=== PATIENT | female | born 1980 | race African-American/Black ===

== ENCOUNTER 2017-05-17 05:15 | Inpatient (IN) | payer OTHER ==
[~2017-05-17 05:15] MED LIST: CITRIC ACID/SODIUM CITRATE 30 ML UNIT-DOSE CUP PO ONE; ELECTROLYTE-148 SOLN 500 ML IV ONE
[2017-05-17 06:06] VITALS: BMI 36.7
[2017-05-17 06:47] LABS: INR 1.01 (0.82-1.09); PROTHROMBIN TIME (PATIENT) 11.1 SEC (9.98-11.88)
[2017-05-17 07:13] LABS: HIV 1 & 2 AB NEGATIVE; HIV 1 AGp24 NEGATIVE
[2017-05-17] MEDS: ELECTROLYTE-148 SOLN 1,000 ML IV SCH (07:55)
[2017-05-17] MEDS ORDERED: ONDANSETRON 4 MG/2 ML VIAL IVPB PRN (08:26)
[2017-05-17] MEDS ORDERED: IBUPROFEN 600 MG TABLET (FP) PO PRN (08:26)
[2017-05-17 09:00] LABS: ARTERIAL BLD GAS O2 SATURATION 30.3 % (90-98.9); ARTERIAL BLOOD GAS BASE EXCESS -0.5 meq/l (-2-2); ARTERIAL BLOOD GAS PO2 20.2 mmHg (80-100)
[2017-05-17 09:02] LABS: ARTERIAL BLD GAS O2 SATURATION 59.3 % (90-98.9); ARTERIAL BLOOD GAS BASE EXCESS -0.2 meq/l (-2-2); ARTERIAL BLOOD GAS HCO3 25.1 meq/L (22-26); ARTERIAL BLOOD GAS pH 7.36 (7.35-7.45)
[2017-05-17 09:04] LABS: ARTERIAL BLOOD GAS PO2 29.9 mmHg (80-100)
[2017-05-17] MEDS ORDERED: OXYTOCIN 20 UNITS in 0.9% NS 1,000 ML IV SCH (09:15)
--- NOTE | 2017-05-17 09:51 | OP ---
Operative Note - Note: Pre-Operative Diagnosis: iup at term ptevious section us admitted yor repeat section Operation: removal of large keloid scar repeat low segment section Post-Operative Diagnosis: Same as Pre-op (kennedy) Surgeon: Sabina Denson Supervisor Intermediates: Lois Sheppard Anesthesia: Spinal Specimens Removed: [lacenta keloid scar Estimated Blood Loss (mls): 500 Drains, Volume Out (mls): 7,000 Fluid Volume Replaced (mls): 7,000
[2017-05-17] MEDS ORDERED: METHYLERGONOVINE MALEATE 0.2 MG/1 ML AMP IM PRN (10:25)
[2017-05-17] MEDS: IBUPROFEN 800 MG/8 ML IJ IVPB PRN ×2 (10:25→18:20)
--- NOTE | 2017-05-17 11:26 | HP ---
Past Medical History - Admission Chief Complaint: 37 year old female, gr3p1, iup at term, history of previous c- section,admitted for repeat . History of Present Illness: antepartum course unremarkable, laboratory evaluation wnl History Source: Patient Limitations to Obtaining History: No Limitations - Past Medical History GIS PROGRAMMER: No: Alzheimer's, CVA, Dementia, Migraine, Multiple Sclerosis, Peripheral Neuropathy, Parkinson's, Seizure, Syncope, TIA, Vertigo, Other Cardiovascular: No: AFIB, Aneurysm, Aortic Insufficiency, Aortic Stenosis, CAD, CHF, Deep Vein Thrombosis, HTN, Hyperlipdemia, DE, Mitral Insufficiency, Mitral Stenosis, Murmur, Pulmonary Hypertension, Other Pulmonary: No: Asthma, Bronchitis, Cancer, COPD, O2 Dependent, Pneumonia, Previously Intubated, Pulmonary Embolus, Pulmonary Fibrosis, Sleep Apnea, Other Gastrointestinal: No: Ascites, Cancer, Constipation, Crohn's Disease, Diverticulitis, Diverticulosis, Esophageal Varices, Gastritis, GERD, GI Bleed, Hemorrhoids, Hiatal Hernia, Inflamatory Bowel Disease, Irritable Bowel Disease, Pancreatitis, Peptic Ulcer Disease, Ulcerative Colitis, Other Hepatobiliary: No: Cirrhosis, Cholelithiasis, Cholecystitis, Choledocholithiasis , Hepatitis A, Hepatitis B, Hepatitis C, Other Renal/: No: Renal Failure, Renal Inusuff, BPH, Cancer, Hematuria, Hemodialysis , Neurogenic Bladder, Renal Calculi, UTI, Other Reproductive: No: Ectopic , Endometriosis, Fibroids, PID, Polycystic Ovary Syndrome, Postmenopausal, Other ...: 3 ...Para: 1 ...Term: 1 ...: 0 ...Spon : 1 ...Induced : 0 ...Multiple Gestation: 0 ...LMP: 08/09/16 ... Weeks Gestation by Dates: 39.0 ...EDC by Dates: 05/24/17 ...EDC by Sono: 05/24/17 Heme/Onc: No: Anemia, B12 Deficiency, Bleeding Disorder, Cancer, Current Chemotherapy, Current Radiation Therapy, Hemochromatosis, Hypercoaguable State, Myeloproliferative Synd, Sickle Cell Disease, Sickle Cell Trait, Thrombocytopenia, Other Infectious Disease: No: AIDS, C-Diff, Herpes Zoster, HIV, MRSA, STD's, Tuberculosis, VREF, Other Psych: No: Addictions, Anxiety, Bipolar, Depression, Panic, Psychosis, Schizophrenia, Other Musculoskeletal: No: Bursitis, Chronic low back pain, Hemiparesis, Hemiplegia, Osteoarthritis, Paraplegia, Other ENT: No: Allergic Rhinitis, Sinusitis, Other Endocrine: No: Kyle's Disease, Daggett's Disease, Diabetes Insipidus, Diabetes Mellitus, Hyperparathyroidism, Hyperthyroidism, Hypothyroidism, Osteopenia, SIADH, Other Dermatology: No: Basal Cell, Cellulitis, Eczema, Melanoma, Psoriasis, Squamous Cell, Other Additional Medical History: sicke cell trait; fob-negative - Past Surgical History Past Surgical History: Yes: Hx Myomectomy: No Hx Transabdominal Cerclage: No - Smoking History Smoking history: Never smoked Have you smoked in the past 12 months: No - Alcohol/Substance Use Hx Alcohol Use: No History of Substance Use: reports: None - Social History ADL: Independent History of Recent Travel: No Home Medications - Allergies Allergies/Adverse Reactions: Allergies Allergy/AdvReac Type Severity Reaction Status Date / Time No Known Allergies Allergy Verified 05/17/17 05:48 - Home Medications Home Medications: Ambulatory Orders Pnv95/Ferrous Fumarate/FA [ Tablet] 1 each PO DAILY 05/30/13 Family Disease History - Family Disease History Family History: Unremarkable Review of Systems - Review of Systems Constitutional: denies: No Symptoms, Chills, Diaphoresis, Fever, Lethargy, Loss of Appetite, Malaise, Night Sweats, Unintentional Wgt. Loss, Weakness, Other Eyes: denies: No Symptoms, Blind Spots, Blurred Vision, Double Vision, Eye Pain , Floaters, Photophobia, Recent Change in Vision, Other HENT: denies: No Symptoms, Difficult Swallowing, Ear Discharge, Ear Pain, Epistaxis, Gingival Bleeding, Hearing Loss, Mouth Swelling, Nasal Congestion, Ocular Prosthesis, Throat Pain, Toothache, Ringing in Ears, Other Neck: denies: No Symptoms, Decreased ROM, Lumps, Pain on Movement, Stiffness, Swollen Glands, Tenderness, Other Cardiovascular: denies: No Symptoms, Chest Pain, Edema, Palpitations, Shortness of Breath, Other Respiratory: denies: No Symptoms, Cough, Exercise Intolerance, Hemoptysis, Orthopnea, PND, Snoring, SOB, SOB on Exertion, Wheezing, Other Gastrointestinal: denies: No Symptoms, Abdominal Pain, Bloating, Constipation, Diarrhea, Dysphagia, Indigestion, Melena, Nausea, Rectal Bleeding, Vomiting, Vomiting Blood, Other Genitourinary: denies: No Symptoms, Burning, Discharge, Dysuria, Flank Pain, Frequency, Hematuria, Incontinence, Lesions, Menses, Pain, Testicular Mass, Testicular Pain, Testicular Swelling, Urgency, Vaginal Bleeding, Other Breasts: denies: No Symptoms Reported, See HPI, Breast Implants, Discharge from Nipple, Lumps, Pain, Skin Changes, Other Musculoskeletal: denies: No Symptoms, Back Pain, Crepitus, Decreased ROM, Extremity Pain, Joint Pain, Joint Swelling, Muscle Pain, Muscle Cramps, Muscle Weakness, Other Integumentary: denies: No Symptoms, Blister, Bruising, Change in Color, Eczema, Erythema, Incision, Lesions, Lump, Pallor, Pruritis, Rash, Wound, Other Endocrine: denies: No Symptoms, Excessive Sweating, Flushing, Increased Hunger, Increased Thirst, Intolerance to Cold, Intolerance to Heat, Unexplained Weight Gain, Unexplained Weight Loss, Other Hematology/Lymphatic: denies: No Symptoms, Easily Bruised, Excessive Bleeding, Swollen Glands, Other Psychiatric: denies: No Symptoms, Altered Sleep Pattern, Anxiety, Depression, Hallucinations, Panic, Paranoia, Suicidal, Other Physical Exam - Maternity Vital Signs: Vital Signs Temperature 98.1 F 05/17/17 10:20 Pulse Rate 77 05/17/17 10:20 Respiratory Rate 18 05/17/17 10:20 Blood Pressure 114/64 05/17/17 10:20 O2 Sat by Pulse Oximetry (%) 100 05/17/17 10:20 Constitutional: Yes: Well Nourished, No Distress, Calm Eyes: Yes: WNL HENT: Yes: WNL Neck: Yes: WNL Cardiovascular: Yes: WNL Lungs: Normal air movement Breast(s): Yes: WNL - Abdominal Exam/OB Number of Fetuses: Single Presentation: Vertex Contractions: No Monitor Mode: External Heart Rate (range): 140 bpm Heart Rate Location: [facility] Category: I Accelerations: Uniform Decelerations: None - Vaginal Exam/OB Vaginal Bleediing: No Speculum Exam: No Amniotic Membrane Status: Intact Presentation: Vertex/Position - Physical Exam Musculoskeletal: Yes: WNL Extremities: Yes: WNL Edema: No Integumentary: Yes: WNL Deep Tendon Reflex Grade: Normal +2 ...Motor Strength: WNL Psychiatric: Yes: Alert, Oriented Assessment/Plan IUP at term, previous , is admitted for repeat
[2017-05-17] MEDS ORDERED: ACETAMINOPHEN 325 MG TABLET (FP) PO PRN (13:53)
[2017-05-17] MEDS: oxyCODONE HCL 5 MG TABLET PO PRN (14:05)
[2017-05-17] MEDS: ACETAMINOPHEN 325 MG TABLET (FP) PO PRN (14:06)
[2017-05-18] MEDS: IBUPROFEN 800 MG/8 ML IJ IVPB PRN (00:31)
[2017-05-18] MEDS: oxyCODONE HCL 5 MG TABLET PO PRN ×2 (06:01→11:09)
[2017-05-18] MEDS: SIMETHICONE 80 MG TAB.CHEW (FP) PO PRN ×3 (06:01→21:24)
[2017-05-18] MEDS: ACETAMINOPHEN 325 MG TABLET (FP) PO PRN ×3 (06:02→21:25)
--- NOTE | 2017-05-18 08:17 | PN ---
Progress Note, Physician - Current Medication List Current Medications: Active Medications Acetaminophen (Tylenol -) 650 mg PO Q4H PRN PRN Reason: FEVER OR PAIN Last Admin: 05/18/17 06:02 Dose: 650 mg Acetaminophen (Tylenol -) 650 mg PO Q6H PRN PRN Reason: PAIN 6-10 Stop: 05/18/17 13:52 Bisacodyl (Dulcolax Suppository -) 10 mg RC PRN PRN PRN Reason: CONSTIPATION Diphenhydramine HCl (Benadryl Injection -) 25 mg IVPUSH Q4H PRN PRN Reason: Pruritis Last Admin: 05/18/17 01:06 Dose: 25 mg Diphtheria/Tetanus/Acell Pertussis (Boostrix -) 0.5 ml IM .ONCE ONE Stop: 05/18/17 10:01 Parenteral Electrolytes (Plasma-Lyte 148 -) 1,000 mls @ 125 mls/hr IV ASDIR EVELINA Last Admin: 05/17/17 07:55 Dose: 125 mls/hr Ibuprofen (Caldolor Injection -) 800 mg IVPB Q6H PRN Last Admin: 05/18/17 00:31 Dose: 800 mg Ibuprofen (Motrin -) 600 mg PO Q4H PRN PRN Reason: PAIN Methylergonovine Maleate (Methergine Injection -) 0.2 mg IM Q4H PRN PRN Reason: Excessive Bleeding (L&D) Oxycodone HCl (Roxicodone -) 10 mg PO Q6H PRN PRN Reason: PAIN 6-10 Stop: 05/18/17 13:52 Last Admin: 05/18/17 06:01 Dose: 10 mg Simethicone (Mylicon -) 80 mg PO Q4H PRN PRN Reason: GAS Last Admin: 05/18/17 06:01 Dose: 80 mg - Objective Vital Signs: Vital Signs Temperature 98.8 F 05/18/17 06:00 Pulse Rate 90 05/18/17 06:00 Respiratory Rate 20 05/18/17 08:00 Blood Pressure 102/55 05/18/17 06:00 O2 Sat by Pulse Oximetry (%) 100 05/17/17 10:20 Constitutional: Yes: Well Nourished, No Distress, Calm Eyes: Yes: WNL HENT: Yes: WNL Neck: Yes: WNL Cardiovascular: Yes: WNL Respiratory: Yes: WNL Gastrointestinal: Yes: Normal Bowel Sounds, Soft ...Rectal Exam: Yes: Deferred Genitourinary: Yes: WNL Breast(s): Yes: WNL Musculoskeletal: Yes: WNL Extremities: Yes: WNL Edema: No Peripheral Pulses WNL: Yes Integumentary: Yes: WNL Wound/Incision: Yes: Clean/Dry, [place] Intact Neurological: Yes: Alert, Oriented ...Motor Strength: WNL Psychiatric: Yes: Alert, Oriented Labs: INR, PTT INR 1.01 (0.82-1.09) 05/17/17 06:00 Assessment/Plan s/p repeat c/s day 1, pt doing well, positive bowel sounds, jimenez removed and voiding without difficulty, positive flatus and pt is ambulating well.
[2017-05-18 08:34] LABS: BASOPHIL 0.1 % (0-2.0); MCH 26.4 pg (25.7-33.7); MCHC 32.9 g/dl (32.0-36.0); MEAN CELL VOLUME 80.5 fl (80-96); MEAN PLT VOLUME 8.7 fl (7.5-11.1); NEUTROPHILS 81.9 % (42.8-82.8); PLATELET COUNT 314 K/MM3 (134-434); RDW 18.4 % (11.6-15.6); WHITE BLOOD COUNT 17.1 K/mm3 (4.0-10.0)
[2017-05-18] MEDS ORDERED: DIPHTH,PERTUSS(ACELL),TET 0.5 ML DISP.SYRIN IM ONE (10:00)
[2017-05-18] MEDS ORDERED: BISACODYL 10 MG SUPP.RECT RC PRN (11:03)
--- NOTE | 2017-05-18 15:33 | PN ---
Progress Note (short form) - Note Progress Note: Anesthesia postop note 37 y/o F s/p spinal anesthesia and duramorph for section POD#1, vss, aaox3, pain well controlled, no complaints, sensory motor intact. No anesthesia complications.
[2017-05-18] MEDS: IBUPROFEN 600 MG TABLET (FP) PO PRN ×2 (15:39→21:24)
[2017-05-18] MEDS: ELECTROLYTE-148 SOLN 1,000 ML IV SCH (17:09)
[2017-05-18] MEDS: diphenhydrAMINE HCL 25 MG CAPSULE (FP) PO PRN (21:24)
[2017-05-19] MEDS: SENNOSIDES/DOCUSATE COMBO (SENNA PLUS) TABLET (UD) PO PRN ×2 (00:07→21:29)
[2017-05-19] MEDS: SIMETHICONE 80 MG TAB.CHEW (FP) PO PRN ×5 (05:21→21:29)
[2017-05-19] MEDS: ACETAMINOPHEN 325 MG TABLET (FP) PO PRN ×4 (05:23→17:28)
[2017-05-19] MEDS: IBUPROFEN 600 MG TABLET (FP) PO PRN ×5 (05:23→21:27)
[2017-05-19] MEDS ORDERED: oxyCODONE HCL 5 MG TABLET PO PRN (05:29)
[2017-05-19] MEDS ORDERED: oxyCODONE HCL 5 MG TABLET ONE (05:29)
[2017-05-19] MEDS: diphenhydrAMINE HCL 25 MG CAPSULE (FP) PO PRN (05:29)
[2017-05-19] MEDS: oxyCODONE HCL 5 MG TABLET PO PRN ×5 (05:32→21:28)
[2017-05-20] MEDS: IBUPROFEN 600 MG TABLET (FP) PO PRN ×5 (05:54→23:35)
[2017-05-20] MEDS: oxyCODONE HCL 5 MG TABLET PO PRN ×2 (05:55→23:34)
[2017-05-20 08:54] LABS: BASOPHIL 0.3 % (0-2.0); EOSINOPHIL 0.6 % (0-4.5); MCH 26.7 pg (25.7-33.7); MEAN CELL VOLUME 80.8 fl (80-96); MEAN PLT VOLUME 8.3 fl (7.5-11.1); NEUTROPHILS 71.9 % (42.8-82.8); PLATELET COUNT 330 K/MM3 (134-434); RDW 19.3 % (11.6-15.6); WHITE BLOOD COUNT 10.2 K/mm3 (4.0-10.0)
[2017-05-20] MEDS: ACETAMINOPHEN 325 MG TABLET (FP) PO PRN ×3 (10:13→18:47)
[2017-05-20] MEDS: SIMETHICONE 80 MG TAB.CHEW (FP) PO PRN ×3 (10:15→18:48)
--- NOTE | 2017-05-20 14:06 | PATH ---
Surgical Pathology Report Patient Name: HI BEACH Med. Rec. #: [id number] /Age/Gender: 1980 (Age: 37) / F Account: [id number] Location: [facility] OBS/FIRST AID NURSE Taken: 05/17/2017 Received: 05/18/2017 Reported: 05/20/2017 Physicians: Sabina Lundberg Specimen(s) Received A: PLACENTA B: OLD SCAR Clinical History , 39 weeks previous IUI History of HSV, history of infertility Final Diagnosis A. PLACENTA, DELIVERY: FOCALLY DISRUPTED THIRD TRIMESTER PLACENTA WITH THREE VESSEL UMBILICAL CORD AND CIRCUMMARGINATE INSERTION OF PLACENTAL MEMBRANES. B. SKIN, ABDOMEN, EXCISION: HYPERTROPHIC SCAR. Electronically Signed Italo Brice M.D. Gross Description A. The specimen is received fresh labeled placenta and is a 470 gram, 15.0 x 14.0 x 3.7 cm. placenta with attached membranes and umbilical cord. The attached membranes are lamb, thick, cloudy and display focal circumarginate insertion. The umbilical cord measures 23 cm. in length and averages 1.2 cm. in diameter. The cord inserts eccentrically, 4 cm. to the nearest margin. No true knots or strictures are identified. Cut surface of the umbilical cord reveals 3 vessels. The surface is marquez blue with moderate fibrin deposition and appropriate caliber vessels. The maternal surface is red-brown with focal defects. Sectioning reveals red-brown, spongy parenchyma. No lesions are identified. Back Seam Stitcher sections are submitted in three cassettes as follows: 1- membrane rolls and umbilical cord; 2-3- full thickness sections of placenta. B. Received in formalin labeled "old scar," is a 15.0 x 2.0 cm brown, elongated portion of skin excised to a depth of 2.0 cm. The epidermal surface displays a hypertrophic scar. Back Seam Stitcher sections are submitted in 2 cassettes. 05/19/201705/19/2017
[2017-05-21] MEDS: IBUPROFEN 600 MG TABLET (FP) PO PRN ×2 (06:31→10:39)
[2017-05-21] MEDS: ACETAMINOPHEN 325 MG TABLET (FP) PO PRN ×2 (06:32→10:40)
[2017-05-21 08:01] VITALS: BP 126/71; PULSE 85; TEMP 98.4
--- NOTE | 2017-05-21 08:04 | DS ---
Physical Exam-TABLE OPERATOR Vital Signs: Vital Signs Temperature 98.9 F 05/20/17 22:00 Pulse Rate 87 05/20/17 22:00 Respiratory Rate 18 05/20/17 22:00 Blood Pressure 119/74 05/20/17 22:00 O2 Sat by Pulse Oximetry (%) 98 05/20/17 21:00 Constitutional: Yes: Well Nourished Eyes: Yes: Conjunctiva Clear HENT: Yes: Atraumatic Neck: Yes: Supple, Trachea Midline Cardiovascular: Yes: Regular Rate and Rhythm Respiratory: Yes: Regular Gastrointestinal: Yes: Normal Bowel Sounds ...Rectal Exam: Yes: WNL Pelvis: Yes: WNL External Genitalia: Yes: Normal Vaginal Exam: Yes: Normal Cervix: Yes: Normal Uterus: Yes: Firm Musculoskeletal: Yes: WNL Wound/Incision: Yes: Well Approximated, [place] Intact Neurological: Yes: Alert, Oriented ...Motor Strength: WNL Psychiatric: Yes: Alert, Oriented Labs: CBC, BMP 05/20/17 06:00 Delivery - Delivery Section: Repeat Type of Anesthesia: Spinal EBL (cc): 500 Delivery, Single - Stages of Labor Date of Delivery: 05/17/17 Time of Delivery: 08:33 Time Placenta Delivered: 08:35 - Condition of Superintendent Pipelines/Insulator Helper Present: Yes Name: Jennyfer Boyer Infant Gender: Female Weight: 7 lb 14 oz Position: Left, OA Total Hours ROM (Hrs/Mins): 5MIN - 1 Minute Total Score: 9 5 Minutes Total Score: 9 - Feeding Plan Initial Plan: Elected not to breastfeed exclusively throughout hospitalization Discharge Summary Reason For Visit: Previous Procedures: Principal: Repeat Low Transverse Hospital Course: Routine Post op care Condition: Good - Instructions Diet, Activity, Other Instructions: Regular diet Wound care No driving, no lifting x 4 weeks F/U with MD in 1 week Disposition: HOME - Home Medications Comprehensive Discharge Medication List: Ambulatory Orders Pnv95/Ferrous Fumarate/FA [ Tablet] 1 each PO DAILY 05/30/13
[2017-05-21] MEDS: SIMETHICONE 80 MG TAB.CHEW (FP) PO PRN (10:39)
== END 2017-05-21 12:05 | disposition home or self-care (01) | DRG 766 ==
LOC: JLDR 05:15 → J3W 11:50
PROVIDERS: ADMIT Obstetrics & Gynecology; ATTEND Obstetrics & Gynecology
PROC: 10D00Z1 Extraction of Products of Conception, Low, Open Approach (ICD-10-PCS; principal; 2017-05-17)
PROC: 0HB7XZZ Excision of Abdomen Skin, External Approach (ICD-10-PCS; 2017-05-17)
PROC: 4A1HXCZ Monitoring of Products of Conception, Cardiac Rate, External Approach (ICD-10-PCS; 2017-05-17)
DX: O34.211 Maternal care for low transverse scar from previous cesarean delivery (principal); L91.0 Hypertrophic scar; Z3A.39 39 weeks gestation of pregnancy; Z37.0 Single live birth
CPT/HCPCS: 36415; 36600; 82803; 85025; 85610; 86593; 86900; 86901; 87389; 88304-TC; 88307-TC; 90715

== ENCOUNTER 2017-05-22 15:26 | Emergency (ER) | payer OTHER ==
[2017-05-22 15:37] VITALS: TEMP 99.8; BMI 35.3
[2017-05-22] MEDS ORDERED: ONDANSETRON 4 MG/2 ML VIAL IVPUSH ONE (15:51)
[2017-05-22] MEDS ORDERED: SODIUM CHLORIDE 1,000 ML IV STA (15:51)
[2017-05-22] MEDS ORDERED: morphine CARPU-JECT 4 MG/1 ML DISP.SYRIN IVPUSH ONE ×2 (15:51→17:14)
[2017-05-22] MEDS ORDERED: ACETAMINOPHEN 325 MG TABLET (FP) PO ONE (15:51)
--- NOTE | 2017-05-22 16:00 | PDOC ---
History of Present Illness - General Chief Complaint: Pain Stated Complaint: PAIN Time Seen by Provider: 05/22/17 15:36 History Source: Patient - History of Present Illness Timing/Duration: reports: getting worse Quality: reports: severe Abdominal Pain Onset Location: reports: RUQ Past History - Past Medical History Allergies/Adverse Reactions: Allergies Allergy/AdvReac Type Severity Reaction Status Date / Time No Known Allergies Allergy Verified 05/17/17 05:48 Home Medications: Ambulatory Orders Ibuprofen [Motrin -] 600 mg PO Q4H PRN #60 tablet 05/21/17 Asthma: No Cancer: No Cardiac Disorders: No Diabetes: No HTN: No Seizures: No Thyroid Disease: No Other medical history: none - Psycho/Social/Smoking Cessation Hx Anxiety: No Suicidal Ideation: No Smoking History: Never smoked Have you smoked in the past 12 months: No Information on smoking cessation initiated: No Hx Alcohol Use: No Drug/Substance Use Hx: No Substance Use Type: None Hx Substance Use Treatment: No Review of Systems - Review of Systems Constitutional: No: Chills, Fever Respiratory: No: Shortness of Breath Cardiac (ROS): No: Chest Pain, Palpitations ABD/GI: Yes: Abdominal cramping. No: Blood Streaked Bowels, Constipated, Diarrhea : No: Dysuria, Flank Pain, Hematuria *Physical Exam - Vital Signs Last Vital Signs Temp Pulse Resp BP Pulse Ox 99.8 F H 108 H 18 117/54 98 05/22/17 15:34 05/22/17 15:34 05/22/17 15:34 05/22/17 15:34 05/22/17 15:34 - Physical Exam General Appearance: Yes: Appropriately Dressed, Severe Distress HEENT: positive: Normal Voice Neck: positive: Supple Respiratory/Chest: positive: Lungs Clear, Normal Breath Sounds. negative: Respiratory Distress Cardiovascular: positive: S1, S2, Tachycardia Gastrointestinal/Abdominal: positive: Tender (sig ttp to RUQ w/ any degree of palpation, no CVAT, csection site without erythema, discharge or sig ttp), Soft Musculoskeletal: negative: CVA Tenderness Integumentary: positive: Dry, Warm Neurologic: positive: Fully Oriented, Alert, Normal Mood/Affect ED Treatment Course - LABORATORY CBC & Chemistry Diagram: 05/22/17 16:00 05/22/17 16:00 Medical Decision Making - Medical Decision Making 05/22/17 15:52 37 yo F, , s/p rpt csection 6 days ago at [facility], sent home yesterday and states at some point while she was home, developed pain to right side of incision that has since resolved and since then has had severe right upper quadrant pain. Denies nausea, vomiting, fever, chills, dysuria or vaginal discharge. Continues to have some vag bleeding since procedure that has not worsened. Passing gas and having normal bowel movements. No history of similar pain. Patient currently crying in ED See exam RUQ pain s/p recent csection Pt in severe distress w/ low grade fever, tachycardia and significant ttp to RUQ , no distension or other peritoneal findings, csection site without obvious s/o infxn ?acute gualberto vs pyelo vs endometritis (though unlikely as no lower abd pain currently), less likely PID or SBO -pain control -IVF -labs -XR -US vs CT 05/22/17 17:22 Wbc 14, was 17, 8/29 during admission for csection. Leukocytosis can be nl post so uncertain if represent acute infxn. Lipase and UA pending. Rest of labs, including lactate, wnl. Pt continued to c/o pain despite 4mg morphine. Will continue to manage pain and send over for US. Case d/w Dr Garcia, pt's floor coverer apprentice, agrees with w/u in ED. Wants to be called back w/ disposition at [phone] 05/22/17 17:59 05/22/17 18:00 05/22/17 18:41 Pt signed out to NAJMA Gonzalez at this time
[2017-05-22] MEDS ORDERED: ACETAMINOPHEN 325 MG TABLET (FP) ONE (16:12)
[2017-05-22] MEDS ORDERED: ONDANSETRON 4 MG/2 ML VIAL ONE (16:12)
[2017-05-22] MEDS ORDERED: morphine CARPU-JECT 4 MG/1 ML DISP.SYRIN ONE ×2 (16:12→17:08)
[2017-05-22 16:23] LABS: BASOPHIL 0.4 % (0-2.0); EOSINOPHIL 0.4 % (0-4.5); MCH 26.4 pg (25.7-33.7); MEAN CELL VOLUME 80.2 fl (80-96); MEAN PLT VOLUME 8.6 fl (7.5-11.1); PLATELET COUNT 386 K/MM3 (134-434); RDW 18.8 % (11.6-15.6)
[2017-05-22 16:51] LABS: ALBUMIN 2.9 g/dl (3.4-5.0); ANION GAP 9 (8-16); BILIRUBIN,TOTAL 0.4 mg/dL (0.2-1.0); CALCIUM 8.7 mg/dL (8.5-10.1); CO2 28 mmol/L (21-32); CREATININE 0.7 mg/dL (0.55-1.02); GLUCOSE,RANDOM 96 mg/dL (74-106); SGOT/AST 24 U/L (15-37); SGPT/ALT 38 U/L (12-78); TOT PROT 6.7 g/dl (6.4-8.2)
[2017-05-22 16:53] LABS: ALK PHOS 119 U/L (45-117); CPK 99 IU/L (26-192); TROPONIN I < 0.02 ng/ml (0.00-0.05)
[2017-05-22 17:08] LABS: INR 1.03 (0.82-1.09); PROTHROMBIN TIME (PATIENT) 11.3 SEC (9.98-11.88)
[2017-05-22 19:15] VITALS: BP 108/57; PULSE 97
[2017-05-22 19:28] LABS: URINE APPEARANCE CLEAR; URINE BILIRUBIN NEGATIVE (NEGATIVE); URINE BLOOD 1+ (NEGATIVE); URINE COLOR LTYELLOW; URINE GLUCOSE (UA) NEGATIVE (NEGATIVE); URINE KETONE NEGATIVE (NEGATIVE); URINE LEUK ESTERASE NEGATIVE (NEGATIVE); URINE NITRITE NEGATIVE (NEGATIVE); URINE PROTEIN NEGATIVE (NEGATIVE); URINE UROBILINOGEN NEGATIVE mg/dL (0.2-1.0)
[2017-05-22 19:37] LABS: URINE MUCUS RARE; URINE RBC 4 /hpf (0-3); URINE WBC 2 /hpf (3-5)
[2017-05-22] MEDS ORDERED: HYDROmorphone HCL CARPU-JECT 1 MG/1 ML DISP.SYRIN IVPUSH ONE (22:09)
[2017-05-22] MEDS ORDERED: HYDROmorphone HCL CARPU-JECT 1 MG/1 ML DISP.SYRIN ONE (22:27)
--- NOTE | 2017-05-23 01:07 | PDOC ---
*Physical Exam - Vital Signs Last Vital Signs Temp Pulse Resp BP Pulse Ox 99.8 F H 97 H 22 108/57 97 05/22/17 15:34 05/22/17 19:13 05/22/17 19:13 05/22/17 19:13 05/22/17 19:13 ED Treatment Course - LABORATORY CBC & Chemistry Diagram: 05/22/17 16:00 05/22/17 16:00 - ADDITIONAL ORDERS Additional order review: Laboratory Results 05/22/17 05/22/17 05/22/17 19:04 16:55 16:55 INR 1.03 Sodium Potassium Chloride Carbon Dioxide Anion Gap BUN Creatinine Creat Clearance w eGFR Random Glucose Lactic Acid Calcium Total Bilirubin AST ALT Alkaline Phosphatase Creatine Kinase Troponin I Total Protein Albumin Lipase Beta HCG, Quant Urine Color Ltyellow Urine Appearance Clear Urine pH 6.0 Ur Specific [place] 1.015 Urine Protein Negative Urine Glucose (UA) Negative Urine Ketones Negative Urine Blood 1+ H Urine Nitrite Negative Urine Bilirubin Negative Urine Urobilinogen Negative Ur Leukocyte Esterase Negative Urine RBC 4 Urine WBC 2 Ur Epithelial Cells Rare Urine Mucus Rare Blood Type O POSITIVE Antibody Screen Negative 05/22/17 05/22/17 05/22/17 16:05 16:00 16:00 INR Sodium 143 Potassium 4.3 Chloride 106 Carbon Dioxide 28 D Anion Gap 9 BUN 11 D Creatinine 0.7 D Creat Clearance w eGFR > 60 Random Glucose 96 Lactic Acid 1.4 Calcium 8.7 Total Bilirubin 0.4 D AST 24 D ALT 38 D Alkaline Phosphatase 119 H Creatine Kinase 99 Troponin I < 0.02 Total Protein 6.7 Albumin 2.9 L Lipase 115 Beta HCG, Quant 139.8 Urine Color Urine Appearance Urine pH Ur Specific [place] Urine Protein Urine Glucose (UA) Urine Ketones Urine Blood Urine Nitrite Urine Bilirubin Urine Urobilinogen Ur Leukocyte Esterase Urine RBC Urine WBC Ur Epithelial Cells Urine Mucus Blood Type Antibody Screen 05/22/17 16:00 RBC 3.65 MCV 80.2 MCHC 33.0 RDW 18.8 H MPV 8.6 Neutrophils % 85.0 H Lymphocytes % 8.1 D Monocytes % 6.1 Eosinophils % 0.4 Basophils % 0.4 - RADIOLOGY Radiology Studies Ordered: Category Date Time Status ABDOMEN & PELVIS CT WITH CONTR [CT] Stat CT Scan 05/22/17 20:26 Taken - Medications Given in the ED: ED Medications Discontinued Medications Generic Name Dose Route Start Last Admin Trade Name Freq PRN Reason Stop Dose Admin Acetaminophen 650 mg 05/22/17 15:51 05/22/17 16:19 Tylenol - PO 05/22/17 15:52 650 mg ONCE ONE Administration Hydromorphone HCl 1 mg 05/22/17 22:09 05/22/17 22:30 Dilaudid Injection - IVPUSH 05/22/17 22:10 1 mg ONCE ONE Administration Sodium Chloride 1,000 mls @ 1,000 mls/hr 05/22/17 15:51 05/22/17 16:19 Normal Saline - IV 05/22/17 16:50 1,000 mls/hr ASDIR STA Administration Morphine Sulfate 4 mg 05/22/17 15:51 05/22/17 16:19 Morphine Injection - IVPUSH 05/22/17 15:52 4 mg ONCE ONE Administration Morphine Sulfate 4 mg 05/22/17 17:14 05/22/17 17:15 Morphine Injection - IVPUSH 05/22/17 17:15 4 mg ONCE ONE Administration Ondansetron HCl 4 mg 05/22/17 15:51 05/22/17 16:19 Zofran Injection IVPUSH 05/22/17 15:52 4 mg ONCE ONE Administration Progress Note - Progress Note Progress Note: Pelvic ultrasound: Endometrium: No abnormality seen within the endometrial canal. No evidence of retained products of conception. Bilateral ovaries were not visualized. No adnexal masses Ultrasound abdominal limited exam: No evidence of cholelithiasis or acute cholecystitis. Mild hepatomegaly. CAT scan abdomen/pelvis with by mouth/IV contrast: No acute pathology. *DC/Admit/Observation/Transfer Diagnosis at time of Disposition: Abdominal pain Qualifiers: Abdominal location: generalized Qualified Code(s): R10.84 - Generalized abdominal pain - Discharge Dispostion Condition at time of disposition: Stable Admit: No - Referrals Referrals: STAFF,NOT ON [Primary Care Provider] - Mati Woods DO [Staff Physician] - - Patient Instructions Printed Discharge Instructions: DI for Abdominal Pain-Adult Additional Instructions: Follow up with your physician and/or the sweeper brush maker machine/ Dr. Woods Return to the ER for severe/persistent/worsening symptoms. YOU MUST PUMP YOUR BREAST MILK AND DUMP IT. DO NOT FEED YOUR CHILD WITH YOUR BREAST MILK FOR 2 DAYS. YOU HAD INTRAVENOUS CONTRAST FOR YOUR CTSCAN STUDY AND NARCOTICS IN YOUR SYSTEM.
== END 2017-05-23 01:33 | disposition home or self-care (01) ==
LOC: JER 15:26
PROC: 3E033NZ Introduction of Analgesics, Hypnotics, Sedatives into Peripheral Vein, Percutaneous Approach (ICD-10-PCS; principal; 2017-05-22)
DX: O90.89 Other complications of the puerperium, not elsewhere classified (principal); R10.11 Right upper quadrant pain
CPT/HCPCS: 36415; 74020-TC; 74177-TC; 76705-TC; 76830-TC; 80053; 81003; 81015; 83605; 83690; 84484; 84702; 85025; 85610; 86850; 86900; 86901; 87040; 87086; 87491; 87591; 99284-25